=== PATIENT | female | born 1980 | race Caucasian/White ===

== ENCOUNTER 2020-07-19 09:51 | Outpatient (CLI) | payer OTHER, SELFPAY ==
--- NOTE | 2020-07-19 | ECG_ITS ---
Measurements Intervals [place] Rate: 81 P: 14 GA: 138 QRS: 26 QRSD: 86 T: 32 QT: 393 QTc: 458 Interpretive Statements SINUS RHYTHM LOW QRS VOLTAGE IN PRECORDIAL LEADS BASELINE ARTIFACT- I, II BORDERLINE ECG Electronically Signed On 07-19-2020 10:46:52 CDT by Sha Sheridan D.O.
== END 2020-07-19 09:52 | disposition home or self-care (01) ==
PROVIDERS: PCP Family Medicine; Visit Provider Family Medicine
DX: R94.31 Abnormal electrocardiogram [ECG] [EKG] (principal)
CPT/HCPCS: 93005

== ENCOUNTER 2020-07-25 14:35 | Outpatient (CLI) | payer OTHER, SELFPAY ==
--- NOTE | ~2020-07-25 | MM_ITS ---
EXAMINATION: MM screening rylan BI w derrick HISTORY: Screening mammogram TECHNIQUE: Craniocaudal and mediolateral oblique 3-D tomosynthesis images were obtained and synthetic 2-D images were generated. CAD analysis was submitted and interpreted. COMPARISON: No prior mammogram is available for comparison at this institution. BREAST PARENCHYMAL COMPOSITION: The breasts are heterogeneously dense, which may obscure small masses . FINDINGS: Scattered bilateral benign calcifications. There is no evidence of suspicious mass, calcifi cation, or architectural distortion to suggest malignancy in either breast. There has been no suspici ous interval change. IMPRESSION: 1. No mammographic evidence of malignancy. 2. Recommend routine screening mammography in one year. BI-RADS Category 2: Benign finding(s). Reviewed, dictated and finalized at location A.
== END 2020-07-25 14:36 ==
PROVIDERS: Visit Provider Obstetrics & Gynecology
DX: Z12.31 Encounter for screening mammogram for malignant neoplasm of breast (principal)
CPT/HCPCS: 77063; 77067

== ENCOUNTER 2021-02-07 09:27 | Emergency (ER) | payer OTHER, MEDICAID, SELFPAY ==
[2021-02-07 09:38] VITALS: BP 162/106; PULSE 98; RESP 18; TEMP 36.3; O2SAT 100
--- NOTE | 2021-02-07 10:59 | ED.URI ---
HPI - URI/Sore Throat General Chief Complaint: Upper Respiratory Infection Stated Complaint: Sore throat History of Present Illness HPI Narrative: This a 40-year-old female presents to urgent care complaining of a sore throat states that is been going on for approximately 3 days. Patient states that her ears are hurting and that she has shooting pains up to her ears patient denies any nausea vomiting and/or diarrhea. Patient denies having any fever but states that she has had chills Related Data Allergies Allergy/AdvReac Type Severity Reaction Status Date / Time triclosan Allergy Severe RASH Verified 02/07/21 10:58 benzocaine Allergy Unknown Unknown Verified 02/07/21 10:58 sertraline Allergy Unknown Unknown Verified 02/07/21 10:58 SERTRALINE HCL Allergy Severe MADE HER Uncoded 02/07/21 10:58 GO CRAZY Review of Systems Review of Systems: Sore throat All systems reviewed & are unremarkable except as noted in HPI and below PMFSH Past Medical History Medical History HLD (hyperlipidemia) Hypertension Prolonged QT interval Steatohepatitis Uterine polyp Surgical History Surgical History H/O: hysterectomy Family History Family History Grandparent Family history of malignant neoplasm Family history of coronary artery disease Social History Social History Smoking status: Former smoker Second hand tobacco smoke exposure: No Alcohol intake: never Comments At time as signature, I have reviewed and agree with nursing past medical, social, surgical and family history. Please see nursing chart for further information. There is no relevant family history pertinent to the presenting complaint. Exam Narrative: GENERAL: Ill-appearing, well-nourished, and in no acute distress. HEAD:Normocephalic, atraumatic. EYES: PERRLA ENT: Nares clear, moderate amount of clear rhinorrhea . Mucous membranes moist. Right ear bulging pharyngeal erythema with exudate bilaterally CHEST: Clear to auscultation. No respiratory distress. HEART: Regular rate and rhythm.. ABDOMEN: Soft, nontender, EXTREMITIES: Normal range of motion. No edema. SKIN: Warm, dry, no rash. NEURO: No focal deficits. Alert and oriented x3. Hypertension noted Course Vital Signs Vital signs: Vital Signs Temperature 97.3 F L 02/07/21 09:38 Pulse Rate 98 02/07/21 09:38 Respiratory Rate 18 02/07/21 09:38 Blood Pressure 162/106 H 02/07/21 09:38 Pulse Oximetry 100 02/07/21 09:38 Temperature 97.3 F L 02/07/21 09:38 Pulse Rate 98 02/07/21 09:38 Respiratory Rate 18 02/07/21 09:38 Blood Pressure 162/106 H 02/07/21 09:38 Pulse Oximetry 100 02/07/21 09:38 MDM - URI/Sore Throat Differential Diagnosis Differential diagnosis: Likely upper respiratory infection, croup, otitis media, sinusitis, viral infection, bronchitis, influenza and pharyngitis Lab Data Labs: Strep Screen Presumptive Negative *(Reference Range: Negative)* Discharge Plan Discharge Clinical Impression: Tonsillitis with exudate Hypertension Qualifiers: Hypertension type: primary hypertension Qualified Code(s): I10 - Essential (primary) hypertension Patient Disposition: Home, Self-Care Condition: Stable Instructions: Antibiotic Form, Pharyngitis (ED), Tonsillitis (ED), Hypertension (ED) Additional Instructions: Take the medication as prescribed. Salt water gargles and/or may use topical anesthetic (eg. Chloraseptic spray) Take tylenol and ibuprofen as needed for pain and fever as directed. Throw away the toothbrush after 24hours of antibiotic. Follow up with primary care provider in 2-3 days if condition is not improving or seek ER visit if your child starts breathing f
== END 2021-02-07 11:52 | disposition home or self-care (01) ==
PROVIDERS: Emergency Provider Nurse Practitioner Family; PCP Family Medicine
DX: J03.90 Acute tonsillitis, unspecified (principal); I10 Essential (primary) hypertension; E78.5 Hyperlipidemia, unspecified
CPT/HCPCS: 87081; 87880; 99213; G0463

== ENCOUNTER 2022-01-02 12:47 | Emergency (ER) | payer OTHER, MEDICAID, SELFPAY ==
[2022-01-02 13:06] VITALS: BP 132/94; PULSE 109; RESP 16; TEMP 36.9; O2SAT 99
--- NOTE | 2022-01-02 13:14 | ED.FEMALEGU ---
HPI - Female Genitourinary General Chief complaint: Urogenital-Female Stated complaint: uti Time Seen by Provider: 01/02/22 13:14 Source: patient, RN notes reviewed and old records reviewed Mode of arrival: ambulatory Limitations: no limitations History of Present Illness HPI Narrative: 41-year-old female presents to the [facility] with complaints of urinary pain, burning, blood on the toilet paper and low back pain since yesterday. Denies any abdominal pain, nausea or vomiting. Denies any chest pain or shortness of breath MD elicited complaint: UTI Related Data Home Medications Medication Instructions Recorded Confirmed cholecalciferol (vitamin D3) 10 10 mcg PO DAILY 07/20/21 01/02/22 mcg (400 unit) tablet fluoxetine 60 mg tablet 30 mg PO DAILY 07/20/21 01/02/22 magnesium 30 mg tablet 30 mg PO DAILY 07/20/21 01/02/22 vitamin B complex 1 cap PO DAILY 07/20/21 01/02/22 olanzapine 7.5 mg tablet 7.5 mg PO DAILY 01/02/22 01/02/22 Allergies Allergy/AdvReac Type Severity Reaction Status Date / Time triclosan Allergy Severe RASH Verified 01/02/22 13:08 benzocaine Allergy Unknown Unknown Verified 01/02/22 13:08 sertraline Allergy Unknown Unknown Verified 01/02/22 13:08 SERTRALINE HCL Allergy Severe MADE HER Uncoded 01/02/22 13:08 GO CRAZY Review of Systems Review of Systems: All systems reviewed & are unremarkable except as noted in HPI and below Constitutional: Constitutional: Reports no additional constitutional complaints, Denies chills and Denies fatigue Eyes: Eyes: Reports no additional eye complaints ENT: Reports system reviewed and no additional complaints, except as documented Cardiovascular: Cardiovascular: Reports no additional cardiovascular complaints Respiratory: Respiratory: Reports no additional respiratory complaints Gastrointestinal: Gastrointestinal: Reports no additional gastrointestinal complaints, Denies abdominal pain, Denies diarrhea, Denies nausea and Denies vomiting Genitourinary: Genitourinary: Reports as per HPI (Urinary frequency, urgency), Reports hematuria, Reports dysuria, Denies flank pain and Denies vaginal discharge Musculoskeletal: Musculoskeletal: Reports no additional musculoskeletal complaints and Denies back pain Integumentary/Breasts: Skin/Breast: Reports system reviewed and no additional complaints, except as docu Neurologic: Reports system reviewed and no additional complaints, except as documented Psychiatric: Psychiatric: Reports no additional psychiatric complaints Endocrine: Endocrine: Denies fatigue Allergic/Immunologic: Allergic/Immunologic: Reports no additional allergic/immunologic complaints PMFSH Past Medical History Medical History HLD (hyperlipidemia) Hypertension Prolonged QT interval Steatohepatitis Uterine polyp Surgical History Surgical History H/O: hysterectomy Family History Family History Grandparent Family history of malignant neoplasm Family history of coronary artery disease Social History Social History Smoking status: Never smoker Second hand tobacco smoke exposure: No Alcohol intake: never Comments At the time of my signature, I reviewed and agree with the nursing past medical, surgical, social, and family history. There is no relevant family history pertinent to the patient complaint. Exam Const: General: healthy appearing, no acute distress, alert and well nourished Nutritional Appearance: well nourished Orientation/consciousness: patient oriented x3 Limitations: no limitations HENMT: Head: normal to inspection Eyes: Conjunctivae: conjunctivae normal Pupils: Equal, round and reactive pupils present Neck: Neck: normal visual inspection, no lymphadenopathy and no meningeal signs Chest: C
== END 2022-01-02 13:25 | disposition home or self-care (01) ==
PROVIDERS: Emergency Provider Nurse Practitioner; PCP Family Medicine
DX: N39.0 Urinary tract infection, site not specified (principal); E78.5 Hyperlipidemia, unspecified
CPT/HCPCS: 81003; 87077; 87086; 87186; 99213; G0463

== ENCOUNTER 2022-11-01 15:14 | Emergency (ER) | payer OTHER, SELFPAY ==
[2022-11-01 15:47] VITALS: BP 122/78; PULSE 109; RESP 20; TEMP 37.3; O2SAT 98
--- NOTE | 2022-11-01 16:52 | ED.EAR ---
HPI - Ear Problem General Chief complaint: Ear Stated complaint: right ear sore Source: patient Mode of arrival: ambulatory Limitations: no limitations History of Present Illness HPI Narrative: 41-year-old female presented for complaint of right ear pressure since yesterday. States hearing is slightly muffled and feels a pressure sensation. She use hydrogen peroxide last night and again this morning. She denies ear drainage, tinnitus, dizziness, nausea, vomiting, fevers or chills. MD Complaint: ear pain Related Data Home Medications Medication Instructions Recorded Confirmed cholecalciferol (vitamin D3) 10 10 mcg PO DAILY 07/20/21 01/02/22 mcg (400 unit) tablet fluoxetine 60 mg tablet 30 mg PO DAILY 07/20/21 01/02/22 magnesium 30 mg tablet 30 mg PO DAILY 07/20/21 01/02/22 vitamin B complex 1 cap PO DAILY 07/20/21 01/02/22 olanzapine 7.5 mg tablet 7.5 mg PO DAILY 01/02/22 01/02/22 Allergies Allergy/AdvReac Type Severity Reaction Status Date / Time triclosan Allergy Severe RASH Verified 01/02/22 13:08 benzocaine Allergy Unknown Unknown Verified 01/02/22 13:08 sertraline Allergy Unknown Unknown Verified 01/02/22 13:08 SERTRALINE HCL Allergy Severe MADE HER Uncoded 01/02/22 13:08 GO CRAZY Review of Systems Review of Systems: CONSTITUTIONAL: Denies malaise, chills, or fever. EYES: Denies visual changes, redness, or discharge. ENT: Denies rhinorrhea, congestion, sinus pain, and sore throat. Reports ear pain CARDIOVASCULAR: Denies chest pain, palpitations, or edema. RESPIRATORY: Denies cough or dyspnea. GASTROINTESTINAL: Denies abdominal pain, nausea, vomiting, diarrhea SKIN: Denies rash or itching. MUSCULOSKELETAL: Denies myalgia. NEUROLOGIC: Denies headache. All systems reviewed & are unremarkable except as noted in HPI and below PMFSH Past Medical History Medical History HLD (hyperlipidemia) Hypertension Prolonged QT interval Steatohepatitis Uterine polyp Surgical History Surgical History H/O: hysterectomy Family History Family History Grandparent Family history of malignant neoplasm Family history of coronary artery disease Social History Social History Smoking status: Never smoker Second hand tobacco smoke exposure: No Alcohol intake: never Comments At time of signature, agree with nursing past medical, surgical, social and family history. There is no relevant family history pertinent to the presenting complaint Exam Narrative: GENERAL: Well-appearing, well-nourished, and in no acute distress. HEAD: Normocephalic EYES: PERRLA, conjunctivae clear ENT: Nares clear. Mucous membranes moist. TM unable to visualize bilaterally, Left canal with excess cerumen, Right canal erythematous tender and swollen c/w OE; no tragal tenderness. Oropharynx not erythematous without lesions. Tonsils not enlarged and without exudate, no drooling, no hoarseness, no trismus, uvula midline. NECK: Supple. No lymphadenopathy CHEST: Clear to auscultation, breath sounds equal. HEART: Regular rate and rhythm. No murmur heard. SKIN: Warm, dry, no rash. NEURO: Alert and oriented x3. PSYCH: Normal mood and affect Course Course Emergency Course: Patient is aware of diagnosis, understands and agrees to treatment plan. Anticipatory guidance given. Patient agrees to follow-up as directed and is aware of reasons to seek care at the emergency department. Portions of this record may have been created with voice recognition software Level of Care: Express Care Visit Vital Signs Vital signs: Vital Signs Temperature 99.2 F 11/01/22 15:47 Pulse Rate 109 H 11/01/22 15:47 Respiratory Rate 20 11/01/22 15:47 Blood Pressure 122/78 11/01/22 15:47 Pulse Oximetry 98 08
== END 2022-11-01 17:01 | disposition home or self-care (01) ==
PROVIDERS: Emergency Provider Nurse Practitioner Family; PCP Family Medicine
DX: H60.91 Unspecified otitis externa, right ear (principal); E78.5 Hyperlipidemia, unspecified; I10 Essential (primary) hypertension
CPT/HCPCS: 99213; G0463

== ENCOUNTER 2023-09-23 11:23 | Outpatient (CLI) | payer OTHER, SELFPAY ==
--- NOTE | ~2023-09-23 | MM_ITS ---
EXAMINATION: MM screening rylan BI w derrick HISTORY: Screening mammogram TECHNIQUE: Craniocaudal and mediolateral oblique 3-D tomosynthesis images were obtained and synthetic 2-D images were generated. CAD analysis was submitted and interpreted. COMPARISON: 07/25/2020 BREAST PARENCHYMAL COMPOSITION:Dense: The breasts are heterogeneously dense, which may obscure small masses. FINDINGS: No suspicious mass, calcification, or architectural distortion are identified in either andie ast to suggest malignancy. There has been no suspicious interval change. IMPRESSION: No mammographic evidence of malignancy. Recommend routine screening mammography in one year. BI-RADS Category 1: Negative Reviewed, dictated and finalized at location .
== END 2023-09-23 11:24 ==
PROVIDERS: PCP Obstetrics & Gynecology; Visit Provider Obstetrics & Gynecology
DX: Z12.31 Encounter for screening mammogram for malignant neoplasm of breast (principal)
CPT/HCPCS: 77063; 77067

== ENCOUNTER 2024-03-21 10:33 | Emergency (ER) | payer OTHER, SELFPAY ==
--- NOTE | ~2024-03-21 | XR_ITS ---
EXAMINATION: XR chest 2V DATE: 03/21/2024 11:20 INDICATION: Chest pain. TECHNIQUE: Frontal and lateral views of the chest were obtained. COMPARISON: Chest 2 views 01/15/2019 FINDINGS: The patient is rotated to her right on the frontal view. No pneumonia, pleural effusion, or pneumothorax. The heart size is normal. IMPRESSION: 1. No acute cardiopulmonary disease. Reviewed, dictated and finalized at location A. ILLER
--- NOTE | 2024-03-21 10:36 | ECG_ITS ---
Test Date: 2024-03-21 10:38:53 Measurements Intervals [place] Rate: 101 P: 50 MN: 139 QRS: 32 QRSD: 91 T: 37 QT: 336 QTc: 437 Interpretive Statements SINUS TACHYCARDIA MINIMAL ST DEPRESSION [0.025+ mV ST DEPRESSION] ABNORMAL RHYTHM ECG No previous ECG available for comparison Electronically Signed On 03-21-2024 12:14:11 [employer] by Ayanna Spann M.D.
[2024-03-21 10:40] VITALS: BP 134/103; PULSE 100; RESP 20; O2SAT 99
[2024-03-21] MEDS: ASPIRIN 81 MG CHEWABLE TABLET 324 MG PO (10:46)
[2024-03-21 10:48] VITALS: TEMP 36.6
[2024-03-21 10:52] LABS: Basophils Percent Auto 0.2 % (0.2-1.2); Eosinophils Percent Auto 0.2 % (0-4.4); Immature Granulocyte Absolute 0.05 K/mm3 (0.00-0.031); Immature Granulocyte Percent A 0.5 % (0-0.5); Lymphocytes Absolute Auto 2.05 K/mm3 (0.9-3.2); Lymphocytes Percent Auto 19.7 % (18.3-44.2); Mean Corpuscular HGB Conc 31.7 g/dl (32-36); Mean Corpuscular Hemoglobin 28.6 pg (26-34); Mean Corpuscular Volume 90.1 fl (80-100); Mean Platelet Volume 12.2 fl (7.4-10.4); Monocytes Absolute Auto 0.7 K/mm3 (0.1-0.6); Monocytes Percent Auto 6.3 % (2.6-8.5); Neutrophils Absolute Auto 7.6 K/mm3 (1.3-6.7); Neutrophils Percent Auto 73.1 % (45.5-73.1); Platelet Count Result 164 k/mm3 (150-375); Red Blood Count 4.55 M/mm3 (4.2-5.4); Red Cell Distribution Width 13.2 % (11.5-14.5); White Blood Count 10.4 K/mm3 (4.5-10.0)
[2024-03-21 11:06] LABS: Alanine Aminotransferase 33 U/L (6-35); Albumin Level 4.5 g/dL (3.5-5.1); Alkaline Phosphatase 130 U/L (38-126); Anion Gap 3 mmol/L (4-12); Aspartate Amino Transferase 33 U/L (14-36); Bilirubin,Total 0.4 mg/dL (0.2-1.3); Blood Urea Nitrogen 17 mg/dL (7-17); Calcium 9.3 mg/dL (8.4-10.2); Carbon Dioxide 33 mmol/L (22-30); Chloride 105 mmol/L (98-107); Estimated CRCL calculation 115 ml/min; Estimated Glomerular Filt Rate > 60; Glucose 83 mg/dL (65-110); Lipase 111 U/L (23-300); Sodium 141 mmol/L (137-145)
[2024-03-21 11:09] LABS: INR 0.9; Prothrombin Time 12.6 Seconds (11.1-14.7)
[2024-03-21 11:10] LABS: Partial Thromboplastin Time 29.5 Seconds (22.3-36.8)
[2024-03-21 11:17] LABS: Troponin I < 0.012 ng/mL (0.000-0.034)
--- NOTE | 2024-03-21 11:18 | ED_ITS ---
HPI - Chest Pain General Chief Complaint: Chest Pain Stated Complaint: cp Time Seen by Provider: 03/21/24 10:34 History of Present Illness HPI narrative: Patient is a 43-year-old female who presents to the ER with reports of chest pain. Chart. Central. May be radiating to her back but she is unsure. Began when she was at work. When she walks around she feels better. No fevers or chills or sweats. No dyspnea or nausea or diaphoresis. No history of heart disease. Patient does have said she had a illness but is not feeling particularly anxious. No abdominal discomfort. Related Data Home Medications ?Medication ?Instructions ?Recorded ?Confirmed ?Last Taken ?Type cholecalciferol (vitamin D3) 10 10 mcg PO DAILY 07/20/21 02/03/24 Unknown History mcg (400 unit) tablet fluoxetine 60 mg tablet 30 mg PO DAILY 07/20/21 02/03/24 Unknown History magnesium 30 mg tablet 30 mg PO DAILY 07/20/21 02/03/24 Unknown History vitamin B complex 1 cap PO DAILY 07/20/21 02/03/24 Unknown History olanzapine 7.5 mg tablet 7.5 mg PO DAILY 01/02/22 02/03/24 Unknown History Allergies Allergy/AdvReac Type Severity Reaction Status Date / Time triclosan Allergy Severe RASH Verified 03/21/24 10:40 benzocaine Allergy Unknown Unknown Verified 03/21/24 10:40 sertraline Allergy Unknown Unknown Verified 03/21/24 10:40 SERTRALINE HCL Allergy Severe MADE HER Uncoded 03/21/24 10:40 GO CRAZY Review of Systems 2 Review of Systems: All systems reviewed & are unremarkable except as noted in HPI and below Constitutional: Constitutional: Reports no additional constitutional complaints ENT: Reports system reviewed and no additional complaints, except as documented Cardiovascular: Cardiovascular: Reports chest pain, Denies rapid heart rate, Denies radiating jaw, neck or arm pain and Denies slow heart rate Respiratory: Respiratory: Reports no additional respiratory complaints [facility] Past Medical History Medical History (Updated 03/21/24 @ 14:59 by Gabriel Matos MD) Prolonged QT interval Uterine polyp Steatohepatitis HLD (hyperlipidemia) Hypertension Surgical History Surgical History H/O: hysterectomy Family History Family History Grandparent Family history of malignant neoplasm Family history of coronary artery disease Social History Social History Smoking status: Never smoker Second hand tobacco smoke exposure: No Alcohol intake: never Substance use: never Substance use type: does not use Lack of Transportation: No Lack of Food: Never True Current Housing: I Have Housing Concerned About Future Housing: No Difficulty Paying Gas/Electric Bills: No Difficulty Paying for Meds: YES Currently Unemployed: No Education: High School Diploma/GED Difficulty w/ Childcare or Family Care: No Living arrangements: with family Gender identity (if verbalized by the patient): Female Sexual Orientation (if Verbalized by the Patient): Straight or Heterosexual Spiritual care concerns: No Agree to blood products: Yes Exam 2 Narrative: GENERAL: Well-appearing, well-nourished, and in no acute distress. HEAD: Normocephalic, atraumatic. ENT: Mucous membranes moist. CHEST: Clear to auscultation. No respiratory distress. HEART: Regular rate and rhythm. Normal peripheral pulses. ABDOMEN: Soft, nontender, nondistended. EXTREMITIES: Normal range of motion. No edema. SKIN: Warm, dry, no rash. NEURO: Alert and oriented x3. PSYCH: Normal mood and affect. Course Course Emergency Course: Resting comfortably. Chest pain-free. Appropriate for d/c home. Vital Signs Vital signs: Vital Signs Pulse Rate 100 03/21/24 10:40 Respiratory Rate 20 03/21/24 10:40 Blood Pressure 134/103 H 03/21/24 10:40 Pulse Oximetry 99 03/21/24 10:40 Oxygen Delivery Room Air 03/21/24 10:40 Temperature 97.8 F 03/21/24 10:48 Pulse Rate 94 03/21/24 11:35 Respiratory Rate 14 03/21/24 11:35 Blood Pressure 139/97 H 03/21/24 11:35 Pulse Oximetry 98 03/21/24 11:35 Oxygen Delivery Room Air 03/21/24 10:40 MDM - Chest Pain Lab Data 03/21/24 10:47 03/21/24 10:47 Labs: Lab Results 03/21/24 03/21/24 Range/Units 10:47 13:38 WBC 10.4 H (4.5-10.0) K/mm3 RBC 4.55 (4.2-5.4) M/mm3 Hgb 13.0 (12.0-15.0) g/dL Hct 41.0 (37.0-47.0) % MCV 90.1 (80-100) fl MCH 28.6 (26-34) pg MCHC 31.7 L (32-36) g/dl RDW 13.2 (11.5-14.5) % Plt Count 164 (150-375) k/mm3 MPV 12.2 H (7.4-10.4) fl Immature Gran % (Auto) 0.5 (0-0.5) % Neut % (Auto) 73.1 (45.5-73.1) % Lymph % (Auto) 19.7 (18.3-44.2) % [place] % (Auto) 6.3 (2.6-8.5) % Eos % (Auto) 0.2 (0-4.4) % Baso % (Auto) 0.2 (0.2-1.2) % Lymph # (Auto) 2.05 (0.9-3.2) K/mm3 [place] # (Auto) 0.7 H (0.1-0.6) K/mm3 Eos # (Auto) 0.0 (0-0.3) K/mm3 Baso # (Auto) 0.0 (0.0-0.1) K/mm3 Abs Immat Gran (auto) 0.05 H (0.00-0.031) K/mm3 Absolute Neuts (auto) 7.6 H (1.3-6.7) K/mm3 Absolute Nucleated RBC 0.000 (0.0-0.012) K/mm3 Nucleated RBC % 0.0 (0.0-0.2) % PT 12.6 (11.1-14.7) Seconds INR 0.9 APTT 29.5 (22.3-36.8) Seconds Sodium 141 (137-145) mmol/L Potassium 4.0 (3.4-5.0) mmol/L Chloride 105 (98-107) mmol/L Carbon Dioxide 33 H (22-30) mmol/L Anion Gap 3 L (4-12) mmol/L BUN 17 (7-17) mg/dL Creatinine 0.60 L (0.7-1.0) mg/dL Estim Creat Clear Calc 115 ml/min Estimated GFR > 60 (59 - ) Glucose 83 (65-110) mg/dL Calcium 9.3 (8.4-10.2) mg/dL Total Bilirubin 0.4 (0.2-1.3) mg/dL AST 33 (14-36) U/L ALT 33 (6-35) U/L Alkaline Phosphatase 130 H (38-126) U/L Troponin I < 0.012 < 0.012 (0.000-0.034) ng/mL Total Protein 9.0 H (6.3-8.2) g/dL Albumin 4.5 (3.5-5.1) g/dL Lipase 111 (23-300) U/L Imaging Data Radiologist's impression: ITS Impressions Chest X-Ray 03/21/24 11:22 IMPRESSION: 1. No acute cardiopulmonary disease. ECG Data EKG #1: ECG completion date: 03/21/24 ECG completion time: 10:38 EKG Interpretation: tachycardia (101), sinus rhythm, non-specific ST changes, normal QRS, normal QT and NL axis Discharge Plan Discharge Clinical Impression: Atypical chest pain Patient Disposition: Home, Self-Care Condition: Stable Instructions: Chest Pain (ED) Additional Instructions: Please return to the emergency department if you develop severe and persistent chest pain, difficulty breathing, dizziness, leg swelling or if you are coughing up blood as these can be signs of a medical emergency. Please call your doctor for a follow up appointment to determine the need for further testing. Patient Language: Slovenian Prescriptions: No Action olanzapine 7.5 mg tablet 7.5 mg PO DAILY losartan 100 mg tablet 100 mg PO DAILY Qty: 90 1RF fluoxetine 60 mg tablet 30 mg PO DAILY cholecalciferol (vitamin D3) 10 mcg (400 unit) tablet 10 mcg PO DAILY vitamin B complex Capsule 1 cap PO DAILY magnesium 30 mg tablet 30 mg PO DAILY alprazolam See Rx Instructions .ROUTE .COMPLEX Qty: 1 0RF Rx Instructions: prescribed by psych- unknown dosing and frequency amlodipine 2.5 mg tablet 2.5 mg PO DAILY Qty: 90 1RF Follow-up/Referrals: Silvina Worthington MD [Primary Care Provider] - 1 Week Quality HEART score for chest pain patients History: slightly suspicious ECG: normal Age: < or = to 45 years Risk factors: 1 or 2 risk factors Troponin: < or = to 1x normal limit Heart score: 1
[2024-03-21] MEDS: KETOROLAC 15 MG/ML VIAL (*BKC) IV PUSH (11:31)
[2024-03-21 11:35] VITALS: BP 139/97; PULSE 94; RESP 14; O2SAT 98
[2024-03-21 14:14] LABS: Troponin I < 0.012 ng/mL (0.000-0.034)
[2024-03-21 15:13] VITALS: BP 135/78; PULSE 91; RESP 18; TEMP 36.5; O2SAT 98
--- OUTSIDE RECORDS SUMMARY | 2024-03-28 14:11 | XMS_ITS | Patient Health Record ---
Author Organization [facility] Address [address] [place] [address] Care Team Providers Care Horse Buyer Name Role Phone Yunior Pardo Primary Care Provider Allergies Allergen (clinical drug ingredient) Drug/Non Drug Allergy documented on EMR Reaction Allergy Type Onset Date Status Solarcaine Unknown Drug Allergy Active sertraline Sertraline Unknown Drug Allergy Activ e Reason For Referral No Information Medications Medication SIG (Take, Route, Frequency, Duration) Notes Start Date End Date Status Nystatin 769799 UNIT/GM 1 application Externally Twice a day As needed UNDER BOTH BREASTS UNTIL RASH RESOLVED 03/02/2024 Active Clotrimazole 1 % APPLY EXTERNALLY TO TOES TWICE DAILY for 28 Not-Taki ng OLANZapine 7.5 MG 1 tablet Orally Once a day for 30 day(s) Not-Taking ARIPiprazole 5 MG 1 tablet Orally Once a day Active amLODIPine Besylate 2.5 MG 1 tablet Orally Once a day for 30 day(s) Active Losartan Potassium 100 MG 1 tablet Orall y Once a day for 30 day(s) Active FLUoxetine HCl 20 MG 1 capsule Orally On ce a day for 30 day(s) Active Terbinafine HCl 250 MG 1 tablet Orally O nce a day for 10 day(s) 03/02/2024 Active Vitamin D 50 MCG (1999) 1 tablet Orally Once a day Active Social History Tobacco Use: Social History Observation Description Date Details (start date - stop date) Never Smoker NA - NA Sex Assigned At : Social History Observation Description Sex Assigned At Female Dont use, Tobacco Use/Smoking Question Answer Notes Are you a nonsmoker Alcohol Screen (Audit-C) Question Answer Notes Did you have a drink containing alcohol in the p ast year? No Problems Problem Type SNOMED Code ICD Code Onset Dates Problem Status W/U Status Risk Notes Problem 15954849 Chronic fatigue (R53.82) Active confirmed Problem 875377060 Depression, major, recurrent, mild (F33.0) Active confirmed Problem 858711606 Memory deficit (R41.3) Active confirmed Problem Obesity (465153116) Obesity, unspecified classification, unspecified obesity type, unspecified whether serious comorbidity present (E66.9) Active confirmed Problem 89516342 Abnormal gait (R26.9) 04/06/19 22 Active confirmed Problem 585549967 Major depressive disorder with current active episode, unspecified depression episode severity, unspecified whether recurrent (F32.9) 03/16/20 21 Active confirmed NO HX PSYCHOSIS OR HARISH Problem 77149540 Primary hypertension (I10) 04/06/19 22 Active confirmed Vital Signs Heart Rate 97 /min 03/02/2024 Respiratory Rate 16 /min 03/02/2024 Oximetry 98 % 03/02/2024 Blood pressure diastolic 88 mm Hg 03/02/2024 Height 64.5 in 03/02/2024 Blood pressure systolic 140 mm Hg 03/02/2024 Weight 203.0 lbs 03/02/2024 BMI 34.3 kg/m2 03/02/2024 Encounters Encounter Location Date Provider Diagnosis [facility] [address] [place] [address] 03/02/2024 Yunior Pardo Yeast dermatitis B37.2 and Nutritional counseling Z71.3 Assessments Encounter Date Diagnosis (ICD Code) Assessment Notes Treatment Notes Treatment Clinical Notes Section Notes 03/02/2024 Yeast dermatitis (ICD-10 - B37.2) 03/02/2024 Nutritional counseling (ICD-10 - Z71.3) Plan Of Treatment Next Appt Details Provider Name:Yunior Pardo , 04/06/2024 11:20:00 AM, [address], [place], [address], Insurance Providers Payer Name Payer Address Payer Phone Subscriber Number Group Number Insured Name Patient Relationship to Insured Coverage Start Date Coverage End Date [employer] [address] [address] [place] [address] [id number] Shania Kenny Self - patient is the insured 1 MEDICAID [address] [place] [address] [id number] Shania Kenny Self - patient is the insured 1 Medical (General) History Surgical History Surgery Date(Month/Year) Hysterectomy Hospitalization History Reason Date(Month/Year)
--- OUTSIDE RECORDS SUMMARY | 2024-03-28 14:11 | XMS_ITS ---
Author Organization [facility] Address [address] [place] [address] Care Team Providers Care Arc Cutter Plasma Arc Name Role Phone Yunior Pardo Primary Care Provider Allergies Allergen (clinical drug ingredient) Drug/Non Drug Allergy documented on EMR Reaction Allergy Type Onset Date Status Solarcaine Unknown Drug Allergy Active sertraline Sertraline Unknown Drug Allergy Activ e REASON FOR VISIT reaction to medication Medications Medication SIG (Take, Route, Frequency, Duration) Notes Start Date End Date Status Nystatin 452663 UNIT/GM 1 application Externally Twice a day As needed UNDER BOTH BREASTS UNTIL RASH RESOLVED 03/02/2024 Active Clotrimazole 1 % APPLY EXTERNALLY TO TOES TWICE DAILY for 28 Not-Taki ng OLANZapine 7.5 MG 1 tablet Orally Once a day for 30 day(s) Not-Taking amLODIPine Besylate 2.5 MG 1 tablet Orally Once a day for 30 day(s) Active Terbinafine HCl 250 MG 1 tablet Orally O nce a day for 10 day(s) 03/02/2024 Active ARIPiprazole 5 MG 1 tablet Orally Once a day Active Losartan Potassium 100 MG 1 tablet Orall y Once a day for 30 day(s) Active FLUoxetine HCl 20 MG 1 capsule Orally On ce a day for 30 day(s) Active Vitamin D 50 MCG (1999 UT) 1 tablet Orally Once a day Active [...] alcohol in the p ast year? No Vital Signs Weight 203.0 lbs 03/02/2024 Height 64.5 in 03/02/2024 BMI 34.3 kg/m2 03/02/2024 Blood pressure systolic 140 mm Hg 03/02/20 24 Blood pressure diastolic 88 mm Hg 024 Heart Rate 97 /min 03/02/2024 Oximetry 98 % 03/02/2024 Respiratory Rate 16 /min 03/02/2024 Encounters Encounter Location Date Provider Diagnosis [address] [place] [address] 03/02/2024 Yunior Pardo Yeast dermatitis B37.2 and Nutritional counseling Z71.3 Assessments Encounter Date Diagnosis (ICD Code) Assessment Notes Treatment Notes Treatment Clinical Notes Section Notes 03/02/2024 Yeast dermatitis (ICD-10 - B37.2) 03/02/2024 Nutritional counseling (ICD-10 - Z71.3) Plan Of Treatment Medication Medication Name Sig Start Date Stop Date Notes Nystatin 712673 UNIT/GM 1 application Ex ternally Twice a day 03/02/2024 Terbinafine HCl 250 MG 1 tablet Orally O nce a day for 10 day(s) 03/02/2024 Next Appt Details Follow Up: 4 Weeks, Reason: MEMORY ISSUES Provider Name:Yunior Pardo , 04/06/2024 11:20:00 AM, [address] [facility] [place], [address], Progress Notes * Francisco ORNELASOB: [birth year] (43 yo F)Acc No.[id number]:03/02/2024 Progress Notes Patient:?Shania ORNELAS Provider:?Yunior Pardo :1980???Age:43 Y???Sex:Female D ate:03/02/2024 Address:[address] [place], [place] [id number] Check In:12:57 PM PERFORMANCE ENGINEER Subjective: * Chief Complaints: * ???Reaction to medication * HPI: ???Interim History:? RASH? ABOUT 3 MONTHS. ITCHES. TRIED CREAM FOR IT. DID NOT WORK. DESITIN HELPS A LITTLE. ?Emergency room visit?No.?Was hospitalized?No.?Depression Screening:?PHQ-9?Little interest or pleasure in doing things?Several days ?Feeling down, depressed, or hopeless?Not at all ?Trouble falling or staying asleep, or sleeping too much?Nearly every day ?Feeling tired or having little energy?More than half the days ?Poor appetite or overeating?More than half the days ?Feeling bad about yourself or that you are a failure, or have let yourself or your family down?Nearly every day ?Trouble concentrating on things, such as reading the newspaper or watching television?Nearly every day ?Moving or speaking so slowly that other people could have noticed; or the opposite, being so fidgety or restless that you have been moving around a lot more than usual?Several days ?Thoughts that you would be better off or of hurting yourself in some way?Not at all ?Total Score?15 ?Interpretation?Moderately Severe Depression ???Screening:?[place] Suicide Severity Rating Scale (LF)?Do you want to initiate with?Screener form ?Interpretation:?Low Risk ?6. Suicide Behaviour: Have you ever done anything,started to do anything, or prepared to end your life??No ?2. Suicidal Thoughts: Have you actually had any thoughts of killing yourself??No ?1. Wish to be : Have you wished you were or wished you could go to sleep and not wake up??No ???CSSRS Interpretation and Follow Up Plan:?CSSRS Interpretation and Follow Up Plan. ?CSSRS Interpretation and Follow Up Plan?CSSRS Screen documented using SF?Yes ?Moderate or High risk requires selection of a follow up plan?CSSRS No/Low: intervention not needed at this time * ROS:?Basic ROS:?Admits?Rash.? * Medical History:? * Surgical History:?Hysterecto my * Hospitalization/Major Diagno stic Procedure:?Denies Past Hospitalization * Family History:?Daughter(s): alive.?Spouse: alive.?Mother: alive.?1 sister(s) - healthy. 1 daughter(s) - healthy. .? * Social History:?Primary Social History:?Living Arrangement?Living Arrangement:?Independent Living ?Is this a supportive environment??Yes ?Alcohol Use?Alcohol Use Frequency:?Never ?Illicit Substance Usage?Illicit Substance Usage:?No ?Employment Status?Employment Status:?Unemployed ???Tobacco Use:?Dont use, Tobacco Use/Smoking?Are you a?nonsmoker ???Drugs/Alcohol:?Alcohol Screen (Audit-C)?Did you have a drink containing alcohol in the past year??No ???Miscellaneous:?Method of learning?Preferred method of learning:?Reading * Medications:?TakingARIPipraz ole 5 MG Tablet 1 tablet Orally Once a day Vitamin D 50 MCG (2000 UT) Tablet 1 tablet Orally Once a day FLUoxetine HCl 20 MG Capsule 1 capsule Orally Once a day Losartan Potassium 100 MG Tablet 1 tablet Orally Once a day amLODIPine Besylate 2.5 MG Tablet 1 tablet Orally Once a day Taking ARIPiprazole 5 MG Tablet 1 tablet Orally Once a day Taking Vitamin D 50 MCG (1999 UT) Tablet 1 tablet Orally Once a day Taking FLUoxetine HCl 20 MG Capsule 1 capsule Orally Once a day Taking Losartan Potassium 100 MG Tablet 1 tablet Orally Once a day Taking amLODIPine Besylate 2.5 MG Tablet 1 tablet Orally Once a day Not-TakingOLANZapine 7.5 MG Tablet 1 tablet Orally Once a day Clotrimazole 1 % Cream APPLY EXTERNALLY TO TOES TWICE DAILY Not-Taking OLANZapine 7.5 MG Tablet 1 tablet Orally Once a day Not-Taking Clotrimazole 1 % Cream APPLY EXTERNALLY TO TOES TWICE DAILY * Allergies:?SertralineSrakeshca janine[Allergies Verified] Objective: * Vitals:?Initials: dt, Wt:203 .0, Ht: 64.5, BMI:34.3, BP:140/88, HR:97, Oxygen sat %:98, RR:16, LMP: hysto, Pain scale:0. * Examination: ???General Examination: ?GENERAL APPEARANCE:?well developed, well nourished, in no acute distress.?SKIN:?MOIST IRREGULAR RASH BILATERAL INFRAMAMMARY.? Assessment: * Assessment: 1.?Yeast dermatitis - B37.2 (Primary)???2.?Nutritional counseling - Z71.3??? Plan: * Treatment: * Recommended Wellness and Pre vention Guidelines: * ?Status ?Alert ?Last Done ?Next Due ?Action Taken ?NONCOMPLIANT ?Alcohol use screening ?- ? ?- ?NONCOMPLIANT ?Allergy List Verification ?- ?03/02 ?- ?NONCOMPLIANT ?BP control in HTN (140/90) ?- ?05/2023 ?- ?NONCOMPLIANT ?Body Mass Index ?- ?03/02/2024 ?- ?NONCOMPLIANT ?Breast cancer screening ?- ? 024 ?- ?NONCOMPLIANT ?Cervical cancer screening ?- ?03/02 ?- ?NONCOMPLIANT ?Depression followup ?03/02/2024 ?03/02/2024 ?- ?NONCOMPLIANT ?Influenza vaccine (high risk) ?- ?1 05/03/2023 ?- * Procedure Codes:?3008F BODY MASS INDEX [id number] MEDICAL NUTRITION, INDIV, [id number] TOBACCO NON-USER * Preventive Medicine:? ??Counseling:?Care goal follow-up plan:?BMI management provided?Yes ?Above Normal BMI Follow-up?Lifestyle education regarding diet * Follow Up:?4 Weeks (Reason: MEMORY ISSUES) * * ORMANCE ENGINEER Sign off status: Completed true * Provider:?Yunior Pardo Date:? 4 Generated for Rosy beltran/Jennifer/Yaakov on:?03/28/2024 02:11 PM PERFORMANCE ENGINEER History and Physical Notes * HPI (History of Present Illness) Category Sub-Category Detail Notes Category Not es Interim History Was hospitalized No Emergency room visit No Depression Screening PHQ-9 Little inte rest or pleasure in doing things: Several days Feeling down, depressed, or hopeless: No t at all Trouble falling or staying asleep, or sl eeping too much: Nearly every day Feeling tired or having little energy: M ore than half the days Poor appetite or overeating: More than h snf the days Feeling bad about yourself o r that you are a failure, or have let yourself or your family down: Nearly every day Trouble concentrating on thi ngs, such as reading the newspaper or watching television: Nearly every day Moving or speaking so slowly that other people could have noticed; or the opposite, being so fidgety or restless that you have been moving around a lot more than usual: Several days Thoughts that you would be b jocelyne off or of hurting yourself in some way: Not at all Total Score: 15 Interpretation: Moderately Severe Depres mayte Screening [place] Suicide Sev erity Rating Scale (LF) Do you want to initiate with: Screener form ?Interpretation:: Low Risk ?6. Suicide Behaviour: Have you ever done anything,started to do anything, or prepared to end your life?: No ?2. Suicidal Thoughts: Have you actually had any thoughts of killing yourself?: No ?1. Wish to be : Have yo u wished you were or wished you could go to sleep and not wake up?: No CSSRS Interpretation and Follow Up Plan CSSRS Interpretation and Follow Up Plan CSSRS Screen documented using SF: Yes Moderate or High risk requir es selection of a follow up plan: CSSRS No/Low: intervention not needed at this time Examination Category Sub-Category Detail Notes Category Not es General Examination GENERAL APPEARANCE: well dev eloped, well nourished, in no acute distress SKIN: MOIST IRREGULAR RASH BILATERAL INFRAMAMMARY
--- OUTSIDE RECORDS SUMMARY | 2024-03-28 14:11 | XMS_ITS | Continuity of Care Document ---
Author Organization [facility] Address [address] [place] [address] [place] [address] Phone Care Team Providers Care Horseradish Maker Name Role Phone Howard OD, Donato Unavailable Unavailable Procedures Procedure Date Eye Exam & Treatment Refraction Eye Exam & Treatment Refraction Special Reports Or Forms Advance Directives Directive Yes / No Effective Date File Name No Information Encounters Encounter Description Practice Location Reason(s) For Visit Diagnoses Date Provider Providers Copied on Encounter [facility], [address] [place] [address] [address], [place], [place], [id number], tel:[phone] [facility] No Information Oct-2 8-200 9 Howard OD Donato. [address] [facility] , [address], [place], [address], [place]. tel:[phone] [facility], [address] [place] [address] [address], [place], [place], [id number], [place] tel:[phone] [facility] No Information Sep-0 3-200 8 Howard OD Donato. [address], [place], [address], [place]. tel:[phone] [facility], [address] [place] [address] [address], [place], [place], [id number], tel:[phone] [facility] [place] No Information Nov-0 7-200 7 Howard OD Donato. [address] , [address], [place], [address], [place]. tel:[phone] Family History Family Member Type Diagnosis Age At Onset No Information Payers Payer name Insurance type Covered alliance party ID Authoriza tilea(s) Medicaid [facility] [id number] Social History Type Description Quantity Date Captured Comments Sex Female Smoking Status No Information Chief Complaint And Reason For Visit No Information Reason For Referral Reason For Referral No Information History Of Present Illness Encounter Date Complaint History Of Prese nt Illness No Information Functional Status Date Functional Assessmen t No Information Instructions Date Instruction Additional Infor mation No Information Assessments Type Assessment Date No Information Patient Care Teams Name Effective Dates (start - stop) Status Members No Information
--- OUTSIDE RECORDS SUMMARY | 2024-03-28 14:26 | XMS_ITS | Continuity of Care Document ---
Author Organization [facility] Address [address] [place] [address] [place] [address] Phone Care Team Providers Care Sampler Radioactive Waste Name Role Phone Howard OD, Donato Unavailable Unavailable Procedures Procedure Date Eye Exam & Treatment Refraction Eye Exam & Treatment Refraction Special Reports Or Forms Advance Directives Directive Yes / No Effective Date File Name No Information Encounters Encounter Description Practice Location Reason(s) For Visit Diagnoses Date Provider Providers Copied on Encounter [facility], [address] [place] [address] [address], [place], [place], [id number], tel:[phone] [facility] No Information Oct-2 8-200 9 Howard OD Donato. [address] [facility] , [address], [place], [address], [place]. tel:[phone] [facility], [address] [place] [address] [address], [place], [place], [id number], [place] tel:[phone] [facility] No Information Sep-0 3-200 8 Howard OD Donato. [address], [place], [address], [place]. tel:[phone] [facility], [address] [place] [address] [address], [place], [place], [id number], tel:[phone] [facility] [place] No Information Nov-0 7-200 7 Howard OD Donato. [address] , [address], [place], [address], [place]. tel:[phone] Family History Family Member Type Diagnosis Age At Onset No Information Payers Payer name Insurance type Covered libertarian ID Authoriza tilea(s) Medicaid [facility] [id number] Social History Type Description Quantity Date Captured [...]
== END 2024-03-21 15:15 | disposition home or self-care (01) ==
PROVIDERS: Emergency Provider Emergency Medicine; PCP Family Medicine
DX: R07.89 Other chest pain (principal); I10 Essential (primary) hypertension; E78.5 Hyperlipidemia, unspecified; Z90.710 Acquired absence of both cervix and uterus; Z79.899 Other long term (current) drug therapy; R00.0 Tachycardia, unspecified
CPT/HCPCS: 36415; 71046; 80053; 83690; 84484; 85025; 85610; 85730; 93005; 96372; 99284; A9270; J1885